=== PATIENT | female | born 1995 ===

== ENCOUNTER 2018-03-09 21:28 | Emergency (ER) | payer MEDICAID, OTHER ==
[2018-03-09 21:28] VITALS: BMI 31.2
[2018-03-09 22:37] VITALS: BP 107/65; PULSE 80; RESP 18; TEMP 98.3; O2SAT 100
--- NOTE | 2018-03-09 23:30 | ED PDOC ---
Upper Extremity Pain/Injury Time Seen by Provider: 03/09/18 23:07 Chief Complaint (Nursing): Upper Extremity Problem/Injury Chief Complaint (Provider): LEft shoulder pain x 2 days History Per: Patient History/Exam Limitations: no limitations Onset/Duration Of Symptoms: Days Current Symptoms Are (Timing): Still Present Quality: Dull, Tightness Additional Complaint(s): 22 yo female with no medical problems presents for evaluation of left neck/upper shoulder for 2 days. PT states yesterday she felt tingling on the left arm which resolved. Pt denies numbness/tingling in ER. No posterior neck pain. No headaches. Pt also states that her menses is 1 week late and she took a test which was positive at home. Pt denies abdominal pain or vaginal bleeding. Pt asks for confirmation of in ER. Past Medical History Reviewed: Historical Data, Nursing Documentation, Vital Signs Vital Signs: Last Vital Signs Temp 98.3 F 03/09/18 22:34 Pulse 80 03/09/18 22:34 Resp 18 03/09/18 22:34 BP 107/65 03/09/18 22:34 Pulse Ox 100 03/09/18 22:34 - Medical History PMH: Hyperthyroidism, Seizures Other PMH: Denies PMHx - Surgical History Surgical History: - Family History Family History: States: Unknown Family Hx - Immunization History Hx Tetanus Toxoid Vaccination: No Hx Influenza Vaccination: No Hx Pneumococcal Vaccination: No - Home Medications Home Medications: Ambulatory Orders Medication Instructions Recorded Levetiracetam [Keppra] 1 tab PO BID #60 tab 10/25/15 - Allergies Allergies/Adverse Reactions: Allergies Allergy/AdvReac Type Severity Reaction Status Date / Time No Known Allergies Allergy Verified 03/09/18 22:34 Review of Systems ROS Statement: Except As Marked, All Systems Reviewed And Found Negative Constitutional: Negative for: Fever, Chills Musculoskeletal: Positive for: Neck Pain Physical Exam - Reviewed Nursing Documentation Reviewed: Yes Vital Signs Reviewed: Yes - Physical Exam Appears: Positive for: Well, Non-toxic, No Acute Distress Head Exam: Positive for: ATRAUMATIC, NORMAL INSPECTION, NORMOCEPHALIC Skin: Positive for: Normal Color, Warm, DRY Eye Exam: Positive for: Normal appearance ENT: Positive for: Normal ENT Inspection Neck: Positive for: Normal, Painless ROM Cardiovascular/Chest: Positive for: Regular Rate, Rhythm Respiratory: Positive for: Normal Breath Sounds. Negative for: Accessory Muscle Use, Respiratory Distress Gastrointestinal/Abdominal: Positive for: Normal Exam, Soft. Negative for: Tenderness, Guarding Back: Positive for: Normal Inspection, Vertebral Tenderness (No C-spine tenderness ) Extremity: Positive for: Normal ROM, Tenderness (Left trapezius ). Negative for: Deformity, Swelling Neurologic/Psych: Positive for: Alert, Oriented - ECG O2 Sat by Pulse Oximetry: 100 Pulse Ox Interpretation: Normal Medical Decision Making Medical Decision Making: Tylenol for pain. Disposition - Clinical Impression Clinical Impression: Strain of left trapezius muscle - Patient ED Disposition Is Patient to be Admitted: No Counseled Patient/Family Regarding: Diagnosis, Need For Followup - Disposition Disposition: Routine/Home Disposition Time: 23:29 Condition: GOOD Additional Instructions: Please begin vitamins. Only tylenol for pain. Instructions: Muscle Strain (DC) Forms: [facility] (H[place]er), [facility] ED School/Work Excuse
== END 2018-03-09 23:55 | disposition home or self-care (01) ==
LOC: H.ER 21:28
DX: S46.812A Strain of other muscles, fascia and tendons at shoulder and upper arm level, left arm, initial encounter (principal); Y92.89 Other specified places as the place of occurrence of the external cause; E05.90 Thyrotoxicosis, unspecified without thyrotoxic crisis or storm

== ENCOUNTER 2018-04-05 19:00 | Emergency (ER) | payer MEDICAID ==
[2018-04-05 19:00] VITALS: BMI 31.2
[2018-04-05 19:13] VITALS: BP 106/65; PULSE 74; RESP 18; TEMP 98.9; O2SAT 99
== END 2018-04-05 19:10 | disposition left against medical advice (07) ==
LOC: H.ER 19:00
DX: Z02.89 Encounter for other administrative examinations (principal)

== ENCOUNTER 2018-04-22 16:00 | Emergency (ER) | payer SELFPAY ==
[2018-04-22 16:00] VITALS: BMI 31.2
[2018-04-22 16:21] VITALS: O2SAT 100
[2018-04-22] MEDS ORDERED: Sodium Chloride 0.9% 1,000 ML IV STA (17:01)
--- NOTE | 2018-04-22 17:04 | ED PDOC ---
HPI: Abdomen Time Seen by Provider: 04/22/18 16:23 Chief Complaint (Nursing): Abdominal Pain Chief Complaint (Provider): abdominal pain History Per: Patient History/Exam Limitations: no limitations Onset/Duration Of Symptoms: Days (1) Current Symptoms Are (Timing): Still Present Location Of Pain/Discomfort: LLQ, Suprapubic Associated Symptoms: Nausea, Vomiting Additional History Per: Patient Additional Complaint(s): 22 y/o female, approximately 11 weeks gestation, presents for evaluation of lower abdominal pain x 1 day. Associated vomiting, which patient states has been intermittent since start of . Denies fever, cough, congestion, chest pain, shortness of breath, palpitations, changes in bowel movements, urinary symptoms. Abnormal Vaginal Bleeding: No Last Menstral Period: 01/30/18 Past Medical History Reviewed: Historical Data, Nursing Documentation, Vital Signs Vital Signs: Last Vital Signs Temp 97.9 F 04/22/18 16:18 Pulse 87 04/22/18 16:18 Resp 19 04/22/18 16:18 BP 101/66 04/22/18 16:18 Pulse Ox 100 04/22/18 16:18 - Medical History PMH: Hyperthyroidism, Seizures Denies: Chronic Kidney Disease - Surgical History Surgical History: - Family History Family History: States: Unknown Family Hx - Immunization History Hx Tetanus Toxoid Vaccination: No Hx Influenza Vaccination: No Hx Pneumococcal Vaccination: No - Home Medications Home Medications: Ambulatory Orders Medication Instructions Recorded Levetiracetam [Keppra] 1 tab PO BID #60 tab 10/25/15 Folic Acid 0.8 mg PO DAILY 03/14/18 Pnv No.95/Ferrous Fum/Folic AC 1 tab PO DAILY 03/14/18 [] Doxylamine/Pyridoxine HCl (B6) 1 - 2 each PO HS #16 tablet. 04/22/18 [Turner Daigle 10-10 mg Tablet] - Allergies Allergies/Adverse Reactions: Allergies Allergy/AdvReac Type Severity Reaction Status Date / Time No Known Allergies Allergy Verified 03/27/18 08:17 Review of Systems ROS Statement: Except As Marked, All Systems Reviewed And Found Negative Gastrointestinal: Positive for: Nausea, Vomiting, Abdominal Pain Physical Exam - Reviewed Nursing Documentation Reviewed: Yes Vital Signs Reviewed: Yes - Physical Exam Appears: Positive for: Well, Non-toxic, No Acute Distress Head Exam: Positive for: ATRAUMATIC, NORMAL INSPECTION, NORMOCEPHALIC Skin: Positive for: Normal Color Eye Exam: Positive for: Normal appearance ENT: Positive for: Normal ENT Inspection Cardiovascular/Chest: Positive for: Regular Rate, Rhythm Respiratory: Positive for: Normal Breath Sounds Gastrointestinal/Abdominal: Positive for: Bowel Sounds, Soft, Tenderness (suprapubic, llq) Back: Positive for: Normal Inspection Extremity: Positive for: Normal ROM Neurologic/Psych: Positive for: Alert, Oriented (x3) - Laboratory Results Result Diagrams: 04/22/18 17:30 04/22/18 17:30 - ECG O2 Sat by Pulse Oximetry: 100 - Progress ED Course And Treament: -upreg -udip -cbc -cmp -beta hcg -ob tv u/s -urinalysis -IV NS bolus -IV reglan History Pain. Comparison None available. Findings Uterus Single live intrauterine gestation. CRL equivalent to 11 wks/6 days gestation Gestational sac diameter equivalent to 11 wks/2 days gestation pole is identified. Heart rate: 162 bpm. Uterus measures 13 x 7.8 x 8.7 cm. No mass. Cervix Long and closed measuring 4 cm. No cervical abnormality seen. Right Ovary Not seen. Left Ovary Measures 3.1 x 1.7 x 1.9 cm. No mass. Normal flow. Other Findings None. Impression 1. Single live intrauterine gestation. 2. Right ovary is not visualized Patient states she is feeling better on re-eval, tolerating PO Patient educated on findings, discharged with rx Turner Advised follow up Rn Acls within 2-3 days REturn precautions given Disposition - Clinical Impression Clinical Impression: Abdominal pain during , Nausea and vomiting in - Patient ED Disposition Is Patient to be Admitted: No Counseled Patient/Family Regarding: Studies Performed, Diagnosis, Need For Followup, Rx Given - Disposition Disposition: Routine/Home Disposition Time: 19:45 Condition: IMPROVED Prescriptions: Doxylamine/Pyridoxine HCl (B6) [Turner Daigle 10-10 mg Tablet] 1 - 2 each PO HS #16 tablet. Instructions: Nausea and Vomiting of (DC), Stomach Pain in Early Forms: [facility] (Indian)
[2018-04-22 17:44] LABS: BASO # 0.1 K/uL (0.0-0.2); BASO % 0.7 % (0.0-2.0); EOS # 0.1 K/uL (0.0-0.7); EOS % 0.6 % (0.0-4.0); HEMOGLOBIN 13.1 g/dL (12.0-16.0); LYMPH # 1.7 K/uL (1.0-4.3); LYMPH % 18.2 % (20.0-40.0); MEAN CELL VOLUME 88.4 fl (81.0-99.0); MEAN CORPUSCULAR HEMOGLOBIN 29.5 pg (27.0-31.0); MEAN CORPUSCULAR HGB CONC 33.4 g/dL (33.0-37.0); MONO # 0.8 K/uL (0.0-0.8); MONO % 8.8 % (0.0-10.0); NEUT # 6.5 K/uL (1.8-7.0); NEUT % 71.7 % (50.0-75.0); RBC 4.43 Mil/uL (3.80-5.20); RED CELL DISTRIBUTION WIDTH 14.6 % (11.5-14.5); SQUAMOUS EPITHIAL 1 /hpf (0-5); URINE BILIRUBIN NEGATIVE (NEGATIVE); URINE BLOOD NEGATIVE (NEGATIVE); URINE CLARITY SLIGHTY-CLOUDY (Clear); URINE COLOR YELLOW (YELLOW); URINE GLUCOSE (UA) 150 mg/dL (NEGATIVE); URINE LEUKOCYTE ESTERASE NEG Leu/uL (Negative); URINE PROTEIN NEGATIVE (NEGATIVE); URINE UROBILINOGEN 0.2-1.0 mg/dL (0.2-1.0); WHITE BLOOD COUNT 9.1 K/uL (4.8-10.8)
[2018-04-22 17:49] LABS: ALB/GLOB RATIO 1.1 (1.0-2.1); ALBUMIN 4.3 g/dL (3.5-5.0); ALT/SGPT 12 U/L (9-52); AST/SGOT 21 U/L (14-36); BLOOD UREA NITROGEN 9 mg/dl (7-17); CALCIUM 9.6 mg/dL (8.4-10.2); GFR NON-AFRICAN AMERICAN > 60
[2018-04-22 20:31] VITALS: BP 114/69; PULSE 91; RESP 18; TEMP 98.3
--- NOTE | 2018-04-23 12:16 | US ---
Date of service: 04/22/2018 PROCEDURE: Limited pelvic ultrasound HISTORY: Suprapubic, left lower quadrant pain. COMPARISON: None TECHNIQUE: Standard protocol for this study/examination. FINDINGS: LMP: 01/30/2018. Prior examinations from the current : None. TECHNIQUE: Real-time 2D imaging, duplex and color Doppler. FINDINGS: Cardiac activity: Present Rate: 162 BPM Measurements: [place] rump length: 5.20 cm Gestational age based on CRL 11 weeks 6 days Gestational age weeks 2 days based on gestational sac measurement 5.38 cm Gestational age derived from LMP: 11 weeks 5 days LUCILLE based on LMP: 11/06/2018. LUCILLE based on biometry: 11/07/2018. Gestational concordance documented Yolk sac not identified Cervix: No Cervical abnormalities: Negative examination for cervical dilatation or effacement. Closed cervix measuring 3.96 cm Subchorionic hemorrhage: None UTERUS: 7.8 x 8.7 x 13.0 cm. ADNEXA: Right: Not visible Left: 1.7 x 1.9 x 3.1 cm. Normal Doppler arterial waveform documented Fluid in the cul-de-sac: None IMPRESSION: 11 weeks 4 days live intrauterine gestation. Gestational concordance documented. Concordant findings (preliminary report) provided by [facility].
== END 2018-04-22 20:35 | disposition home or self-care (01) ==
LOC: H.ER 16:00
DX: O26.899 Other specified pregnancy related conditions, unspecified trimester (principal); O21.9 Vomiting of pregnancy, unspecified; O99.281 Endocrine, nutritional and metabolic diseases complicating pregnancy, first trimester; Z3A.11 11 weeks gestation of pregnancy; E05.90 Thyrotoxicosis, unspecified without thyrotoxic crisis or storm
CPT/HCPCS: 76817; 80053; 81003; 81025; 84702; 85025; 96360; 99284; J2765; J7030